=== PATIENT | female | born 1990 | race Caucasian/White ===

== ENCOUNTER 2017-08-20 03:22 | Inpatient (IN) | payer OTHER ==
[~2017-08-20] VITALS: Ht 170.2 cm; Wt 102.1 kg
[~2017-08-20 03:22] MED LIST: PRENTAB26 PO
[2017-08-23] MEDS ORDERED: LACTATED RINGER'S 1000ML 1,000 ML IV PRN (10:28)
[2017-08-23] MEDS ORDERED: LACTATED RINGER'S 1000ML 500 ML IV PRN ×2 (10:39→17:36)
[2017-08-23] MEDS ORDERED: OXYTOCIN 30 UNITS/500ML NSS IV PRN ×2 (10:45→22:15)
[2017-08-23] MEDS ORDERED: MISOPROSTOL 25 MCG TAB PV ONE (10:45)
[2017-08-23] MEDS: LACTATED RINGER'S 1000ML 1,000 ML IV SCH ×3 (11:08→20:21)
[2017-08-23 11:17] LABS: HEMATOCRIT 33.4 % (37-47); HEMOGLOBIN 11.3 g/dL (12.0-16.0); MEAN CORPUSCULAR HEMOGLOBIN 28.8 pg (25-34); MEAN CORPUSCULAR HGB CONC 33.8 g/dl (32-36); MEAN PLATELET VOLUME 11.7 fL (7.4-10.4); NUCLEATED RED BLOOD CELL ABS 0.02 K/uL (0-0); PLATELET COUNT 220 K/uL (130-400); RED CELL DISTRIBUTION WIDTH CV 14.4 % (11.5-14.5); RED CELL DISTRIBUTION WIDTH SD 44.5 fL (36.4-46.3); WHITE BLOOD COUNT 8.83 K/uL (4.8-10.8)
[2017-08-23 11:30] VITALS: Ht 170.2 cm; Wt 102.1 kg
[2017-08-23] MEDS ORDERED: PENICILLIN G POTASSIUM IV 6 MU in DEXTROSE 5% 250ML 250 ML IV STA (11:31)
[2017-08-23] MEDS ORDERED: BUPIVACAINE 0.25% 30 ML VIAL ONE (15:31)
[2017-08-23] MEDS ORDERED: EpHEDrine SULFATE INJ 50 MG/ML AMP ONE (15:31)
[2017-08-23] MEDS ORDERED: FENTANYL CITRATE INJ 50 MCG/1 ML 2 ML VIAL ONE (15:32)
[2017-08-23] MEDS ORDERED: FENTANYL 2MCG/ML ROPIV 1.25MG/ML 100ML BAG EPI ONE (15:33)
[2017-08-23] MEDS: PENICILLIN G POTASSIUM IV 3 MU in DEXTROSE 5% 100ML 100 ML IV PRN ×2 (15:48→19:35)
[2017-08-23] MEDS ORDERED: NALOXONE HCL INJ 1 MG in SODIUM CHLORIDE 0.9% 1000ML 1,000 ML IV PRN (17:36)
[2017-08-23] MEDS ORDERED: EpHEDrine SULFATE INJ 50 MG/ML AMP IV PRN (17:45)
[2017-08-23] MEDS ORDERED: NALOXONE HCL INJ 0.4 MG/1 ML VIAL/CARP IV PRN (17:45)
[2017-08-23] MEDS ORDERED: ONDANSETRON INJ 2 MG/ML 2 ML VIAL IV PRN (17:45)
[2017-08-23] MEDS ORDERED: DiphenhydrAMINE HCL 50 MG/ML VIAL IV PRN (17:45)
[2017-08-23] MEDS ORDERED: NALBUPHINE HCL INJ 10 MG/ML AMP IV PRN (17:45)
[2017-08-23] MEDS: FENTANYL 2MCG/ML ROPIV 1.25MG/ML 100ML BAG EPI PRN ×2 (18:00→19:04)
[2017-08-23] MEDS ORDERED: NURSING VERBAL MED ORDER ONE (18:15)
--- NOTE | 2017-08-23 22:12 | Anesthesia Procedure Note ---
Anesthesia Epidural Removal Nt Date & Time Aug 23, 2017 at 22:11 Vital Signs Pain Intensity: 0.0 Notes Mental Status: alert / awake / arousable, participated in evaluation Nausea / Vomiting: adequately controlled Pain: adequately controlled Airway Patency, RR, SpO2: stable & adequate BP & HR: stable & adequate Hydration State: stable & adequate Neuraxial Anesthesia: was administered, sensory block is resolving Anesthetic Complications: no major complications apparent, pt satisfied with anesthetic care Epidural: removed without complications, with tip intact
[2017-08-23] MEDS ORDERED: LANOLIN OINT EXT PRN (22:15)
[2017-08-23] MEDS ORDERED: SUPERCREAM 0.870 % 15GM JAR EXT PRN (22:15)
[2017-08-23] MEDS ORDERED: HYDROCORTISONE ACETATE 25 MG SUPP PR PRN (22:15)
[2017-08-23] MEDS ORDERED: ACETAMINOPHEN 325 MG TAB PO PRN (22:15)
[2017-08-24] VITALS (7 sets, daily range): BP systolic 110–133; BP diastolic 64–87; PULSE 80–102; TEMP 36.3–36.9; O2SAT 95–97
[2017-08-24] MEDS: IBUPROFEN 600 MG TAB PO PRN ×5 (00:07→18:50)
[2017-08-24] MEDS: BENZOCAINE 20% AER SPR 82.5 GM CAN EXT PRN (02:09)
[2017-08-24] MEDS: OXYCODONE/ACETAMINOPHEN 5-325 TAB PO PRN ×2 (02:09→23:47)
--- NOTE | 2017-08-24 02:13 | DELIVERY SUMMARY ---
DATE OF OPERATION: 08/23/2017 TIME OF DELIVERY: 2135. DELIVERY OF PLACENTA: 2138. DELIVERY NOTE: The patient is a 27-year-old 1 para 0 at 40 weeks gestation, who was admitted to labor and delivery on the morning of 08/23/2017 for a scheduled induction of labor secondary largely for gestational age. On admission, she was found to be 4 cm, 75% of -1 station. heart tones are category I. She was started on oxytocin per protocol for labor induction. She received an epidural for anesthesia. Artificial rupture of membranes was performed at 0 with clear amniotic fluid noted. She reached complete dilation at 2043 and pushed to delivery at 2135. She delivered a viable male in the occiput posterior position to an midline episiotomy. The baby was delivered without complication and placed on the patient's abdomen. Cord was clamped x2 and cut. Apgars were 8 at 1 minute and 9 at 5 minutes. Please see nursing notes for further baby assessment. Cord blood was then obtained and intact placenta with 3-vessel cord was delivered at 2138. Oxytocin infusion was then begun. The lower uterine segment and vagina were cleared of any blood clots and debris. Exploration of the perineum noted midline episiotomy with no extension, which was repaired with 2-0 and 3-0 Vicryl sutures in layers. Good sphincter tone was noted. No other lacerations were seen. Estimated blood loss was 300 mL. All sponge, instrument, and needle counts were found to be correct x2. Both patient and baby tolerated the delivery well and were in recovery with stable vital signs. I attest to the content of the Intraoperative Record and any orders documented therein. Any exceptions are noted below. MTDD
[2017-08-24 05:39] LABS: HEMATOCRIT 34.1 % (37-47); HEMOGLOBIN 11.3 g/dL (12.0-16.0)
[2017-08-24] MEDS: DOCUSATE SODIUM 100 MG CAP PO SCH ×2 (07:30→20:21)
[2017-08-24] MEDS: FERROUS SULFATE 325 MG TAB PO SCH (07:31)
[2017-08-24] MEDS: PRENATAL VITAMIN TAB PO SCH (07:31)
--- NOTE | 2017-08-24 08:12 | OB/GYN Progress Note ---
CRUMB PACKER Progress Note Date of Service: Aug 24, 2017. Patient is seen and examined. She feels well, no complaints. Ambulating without dizziness Voiding without difficulty Tolerating regular diet with out N&V Bleeding is minimal No fever/ chills/ CP/ SOB/ N&V/ Leg pain Breast feeding without problems Last 8 Hrs Date Time Temp Pulse Resp B/P (MAP) Pulse Ox O2 Delivery O2 Flow Rate FiO2 08/24/17 04:35 36.8 86 16 133/83 (100) 96 Room Air 08/24/17 01:05 Room Air 08/24/17 01:05 36.9 102 16 126/82 (97) 97 Room Air Last 24 Hours Test 08/23/17 10:45 08/24/17 05:25 White Blood Count 8.83 K/uL Red Blood Count 3.93 M/uL Hemoglobin 11.3 g/dL 11.3 g/dL Hematocrit 33.4 % 34.1 % Mean Corpuscular Volume 85.0 fL Mean Corpuscular Hemoglobin 28.8 pg Mean Corpuscular Hemoglobin Concent 33.8 g/dl RDW Standard Deviation 44.5 fL RDW Coefficient of Variation 14.4 % Platelet Count 220 K/uL Mean Platelet Volume 11.7 fL Nucleated RBC Absolute Count (auto) 0.02 K/uL Nucleated Red Blood Cells % 0.2 % PE: General: Alert, orientedx3, NAD Abd: soft, NT, fundus firm, below Umbilicus Perineum intact, Lochia rubra minimal Ext; NT, no edema AP: 27 yo s/p , ppd# 1 VSS Afebrile doing well Continue routine care All questions were answered D/C home tomorrow
[2017-08-24] MEDS ORDERED: DIPHTHERIA/TETANUS/PERTUSSIS 0.5 ML SYR/VIAL IM. ONE (09:00)
[2017-08-24] MEDS ORDERED: BISACODYL 5 MG TABEC PO SCH (20:00)
[2017-08-25] MEDS: BENZOCAINE 20% AER SPR 82.5 GM CAN EXT PRN (02:34)
[2017-08-25 06:55] LABS: HEMATOCRIT 30.8 % (37-47); HEMOGLOBIN 10.5 g/dL (12.0-16.0); MEAN CELL VOLUME 86.3 fL (80-100); MEAN CORPUSCULAR HEMOGLOBIN 29.4 pg (25-34); MEAN CORPUSCULAR HGB CONC 34.1 g/dl (32-36); MEAN PLATELET VOLUME 11.6 fL (7.4-10.4); PLATELET COUNT 180 K/uL (130-400); RED CELL DISTRIBUTION WIDTH CV 14.8 % (11.5-14.5); RED CELL DISTRIBUTION WIDTH SD 46.2 fL (36.4-46.3); WHITE BLOOD COUNT 10.43 K/uL (4.8-10.8)
[2017-08-25] MEDS ORDERED: BISACODYL 10 MG SUPP PR PRN (07:00)
[2017-08-25] MEDS: DOCUSATE SODIUM 100 MG CAP PO SCH (07:20)
[2017-08-25] MEDS: PRENATAL VITAMIN TAB PO SCH (07:20)
[2017-08-25] MEDS: IBUPROFEN 600 MG TAB PO PRN ×2 (07:20→11:24)
[2017-08-25] MEDS: FERROUS SULFATE 325 MG TAB PO SCH (07:20)
[2017-08-25 07:30] VITALS: BP 125/79; PULSE 91; TEMP 36.5; O2SAT 97
--- NOTE | 2017-08-25 09:42 | OB/GYN Progress Note ---
CORPORATE SPECIALIST Progress Note Date of Service: Aug 25, 2017. Patient is seen and examined. She feels well, no complaints. Ambulating without dizziness Voiding without difficulty Tolerating regular diet with out N&V Bleeding is minimal No fever/ chills/ CP/ SOB/ N&V/ Leg pain Breast feeding without problems Date Time Temp Pulse Resp B/P (MAP) Pulse Ox O2 Delivery O2 Flow Rate FiO2 08/25/17 07:30 36.5 91 20 125/79 (94) 97 Room Air 08/25/17 07:30 97 Room Air 08/24/17 23:45 36.8 85 16 110/64 (79) 08/24/17 23:45 Room Air 08/24/17 19:30 36.5 85 20 133/84 (100) Room Air 08/24/17 15:30 Room Air 08/24/17 15:30 36.5 80 20 122/76 (91) Room Air 08/24/17 12:15 36.3 83 20 125/87 (100) 97 Room Air Last 24 Hours Test 08/25/17 06:17 White Blood Count 10.43 K/uL Red Blood Count 3.57 M/uL Hemoglobin 10.5 g/dL Hematocrit 30.8 % Mean Corpuscular Volume 86.3 fL Mean Corpuscular Hemoglobin 29.4 pg Mean Corpuscular Hemoglobin Concent 34.1 g/dl RDW Standard Deviation 46.2 fL RDW Coefficient of Variation 14.8 % Platelet Count 180 K/uL Mean Platelet Volume 11.6 fL PE: General: Alert, orientedx3, NAD Abd: soft, NT, fundus firm, below Umbilicus Perineum intact, Lochia rubra minimal Ext; NT, no edema AP: 27 yo s/p , ppd# 2 VSS Afebrile doing well Continue routine care All questions were answered Encouraged to call with questions or concerns D/C home , f/u in office
--- NOTE | 2017-08-25 09:43 | Discharge Instructions ---
Discharge Instructions Date of Service Aug 25, 2017. Admission Reason for Admission: IUP Discharge Discharge Diagnosis / Problem: Discharge Goals Goal(s): Routine recovery after delivery Medications Continue Dispensed Medications: lansinoh, other Activity Recommendations Activity Limitations: as noted below ACTIVITY RECOMMENDATIONS: * Gradual return to full activity over the next 2-3 weeks. * No lifting - nothing heavier than baby over the next 2-3 weeks. * Do not engage in vigorous exercise, sexual activity or sports until cleared by your physician. * Do not drive or operate any motorized equipment until cleared by your physician. * You may shower/bathe daily. BREAST CARE: If you are not breast feeding: * Wear a supportive bra 24 hours a day for one to two weeks. * Avoid stimulating your breasts and nipples as much as possible during the first few weeks after delivery. * When taking a shower, have the warm water hit your back, not breasts. * When your breasts feel full, apply ice packs. Usually three to four times a day helps ease the discomfort. * Take a mild pain medication (Tylenol/Motrin) when you are uncomfortable. If breast feeding: * Use breast milk to lubricate nipples. Lansinoh cream may be used for sore nipples. You do not need to remove cream prior to breast feeding. If using a different brand of cream, check the label for directions regarding removal of cream prior to nursing. * Wear a supportive bra. * If having problems with breasts or breast feeding, call a technical marketing consultant or your health care provider. EPISIOTOMY CARE: After delivery, if you have an episiotomy (stitches), the following steps will ease discomfort and aid healing. * For the first 24 hours after delivery, place ice packs next to your episiotomy to help reduce swelling. * After the first 24 hour-period, sitz baths, either portable or in the tub, are suggested. A shower with a shower arm sprayed over the episiotomy may be comforting. * Kailey care should be done after each voiding and bowel movement. Squirt warm water from a plastic bottle over the perineum (region of the body between the anus and urinary opening) and pat dry. * Use Dermoplast to ease discomfort. Shake container. Wing directly over the episiotomy. * Place a Tucks on a clean sanitary pad next to your episiotomy. OVER THE COUNTER MEDICATION: * For discomfort or pain, you may use Acetaminophen (Tylenol), Ibuprofen (Advil ), or Naproxen (Aleve) following the package directions. * For constipation you may use Colace following the package directions. SPECIAL CARE INSTRUCTIONS: When you are discharged from the hospital, it is important for you to follow the instructions listed below: * During the first week at home, you should be able to care for yourself and your baby. In addition, the usual light household activities are encouraged. * Limit your activities to the way you feel. Do not try to clean the house or move furniture. Be sensible. * If you actively engage in sports and have done so up until the time of your delivery, you may resume these activities as soon as you feel able. This may take up to one month or even longer. Use good judgment. * Continue to take your vitamins for at least six weeks after the of your baby. * Your diet need not be limited unless you were on a special diet before your delivery. Breast-feeding mothers need around 2500 calories per day and at least 64-80 ounces of fluid per day (8 to 10 glasses). * You should eat foods from the four major food groups. Crash diets or fad diets are to be avoided. Eating lean meats, fresh fruits and vegetables, low-fat dairy products, high fiber foods and a regular exercise program, will help you get back to your pre- weight without putting your health at risk. * Constipation is sometimes a problem after delivery. Take a mild laxative as needed. If breast feeding, Milk of Magnesia is acceptable to use. You may use a suppository or Fleets enema if no episiotomy. * A daily shower or tub bath is suggested. Be sure to thoroughly and gently dry the perineum. * A bloody vaginal discharge will usually continue until around four weeks post . A small amount of bleeding may continue for as long as six weeks. Vaginal discharge changes from the bright red bleeding after delivery to pink then brownish and finally yellowish-pink before becoming white and disappearing. * Bleeding may increase with activity. Your first period may come in 4-8 weeks. If you are breast feeding, your period may be delayed even longer. * [place] (sex) can begin whenever both you and your partner feel comfortable and do not have any form of genital infection. It is recommended that you wait until after your return appointment and discuss with your physician. If you have questions, please talk to your health care practitioner. A condom should be used to prevent infection and . * Foreplay, gentle intercourse and lubrication is very important the first several times to prevent pain. A water-based lubricant such as K-Y jelly or Astroglide may be used. * Tampons may be used six weeks after delivery. * Douching should be avoided for 6 weeks after delivery. * If you have RH negative blood and your baby is RH positive, you will receive RHOGAM by injection prior to discharge. The nurse will give you a card to keep with you that has the date and place that you received RHOGAM after delivery. * During your care, you had a Rubella screen done to check for the presence of rubella antibodies in your blood. If your test was negative, you will receive a Rubella vaccine prior to discharge. This vaccine may cause a fever, soreness at the injection site and flu-like symptoms. If these symptoms persist, notify your health care practitioner. is not advised for three months after a Rubella vaccine. There is a higher chance of having a baby with defects if conceived within three months of getting the vaccine. * If you were discharged 24 hours from delivery or before 48 hours: Visiting nurses will come to your home 48 hours after discharge to assess you and your baby. The visiting nurse will meet with you while you are in the hospital to arrange a time and get directions to your home. * Verbalizes understanding of car seat law as reviewed with patient nursing. * Car Seat hand-out given and reviewed with patient by nursing. * Shaken baby information reviewed with patient by nursing. Call you doctor if: * Heavy bleeding (saturating several pads an hour) or passing clots the size of your fist. * A fever >101 degrees F (38.3 degrees C) on two occasions four hours apart and/or chills. * Unusual pain in the pelvic or vaginal areas. * "Baby Blues" lasting longer than two weeks. If you have any questions or concerns, call your health care practitioner at . FOLLOW-UP VISIT: * Please call the office at to schedule a 6 week examination. It is important you keep this appointment. * It is important for you to make arrangements for either yearly or twice yearly check-ups thereafter. . Current Hospital Diet Patient's current hospital diet: Regular OB Diet Discharge Diet Recommended Diet: Regular Diet Pending Studies Studies pending at discharge: no Medical Emergencies . Who to Call and When: Medical Emergencies: If at any time you feel your situation is an emergency, please call 911 immediately. . Non-Emergent Contact Non-Emergency issues call your: Specialist Call Non-Emergent contact if: temperature is above 100.5, your pain is not controlled, your pain is worsening . . "Provider Documentation" section prepared by Surinder Stephens. .
[2017-08-25] MEDS ORDERED: MAGNESIUM HYDROXIDE SUSP 30 ML UDC PO ONE (11:30)
[2017-08-25 15:30] VITALS: BP 135/87; PULSE 67; TEMP 36.7
[2017-08-25 17:25] VITALS: BP_DIAS 87; PULSE 67; TEMP 36.7
== END 2017-08-25 18:35 | disposition home or self-care (01) | DRG 775 ==
LOC: C.LD 08-23 10:05 → C.OBG 08-24 01:17
PROVIDERS: ADMIT Obstetrics & Gynecology; ATTEND Obstetrics & Gynecology
PROC: 3E033VJ Introduction of Other Hormone into Peripheral Vein, Percutaneous Approach (ICD-10-PCS; principal; 2017-08-23)
PROC: 0W8NXZZ Division of Female Perineum, External Approach (ICD-10-PCS; principal; 2017-08-23)
PROC: 10E0XZZ Delivery of Products of Conception, External Approach (ICD-10-PCS; principal; 2017-08-23)
DX: O36.62X0 Maternal care for excessive fetal growth, second trimester, not applicable or unspecified (principal); Z3A.40 40 weeks gestation of pregnancy; Z37.0 Single live birth

== ENCOUNTER 2020-04-05 07:42 | Inpatient (IN) ==
[2020-04-05] MEDS ORDERED: OXYTOCIN 30 UNITS/500 ML BAG IV PRN ×3 (07:44→19:24)
[2020-04-05] MEDS ORDERED: PENICILLIN G POTASSIUM 6 MU in DEXTROSE 5% 250 ML IV STA (07:44)
--- NOTE | 2020-04-05 07:51 | Obstetrical Progress Note ---
Date of Service April 05, 2020 Assessment & Plan Admission and Anticipated Discharge Date Admission Date: April 05, 2020 Subjective Admit Note 29 F P1001 at 38.5 weeks admitted for induction of labor for macrosomia at term. patient has previous delivery uncomplicated in July of 2017 9lb 15 oz. This baby measures EFW of 10 lbs. 4 oz yesterday by ultrasound. GBS is positive. Cervix is 3.5/70/-2/vertex/mid-position/soft/intact. FHT Cat 1. Will start antibiotics and start Pitocin to induce labor. Anticipate vaginal delivery.
[2020-04-05 08:21] LABS: Hematocrit (blood only) 34.9 % (37-47); Hemoglobin 11.4 g/dL (12.0-16.0); Mean Corpuscular Hemoglobin 27.8 pg (25-34); Mean Corpuscular Hgb Conc 32.7 g/dL (32-36); Mean Corpuscular Volume 85.1 fL (80-100); Mean Platelet Volume 12.4 fL (7.4-10.4); Platelet Count 200 K/uL (130-400); RDW Coefficient of Variation 15.1 % (11.5-14.5); RDW Standard Deviation 46.7 fL (36.4-46.3); White Blood Count 9.77 K/uL (4.8-10.8)
[2020-04-05] MEDS: LACTATED RINGER'S 1,000 ML IV PRN ×3 (08:35→17:03)
[2020-04-05] MEDS ORDERED: ONDANSETRON INJ 2 MG/ML 2 ML VIAL IV PRN (11:45)
[2020-04-05] MEDS ORDERED: NALOXONE HCL 1 MG in SODIUM CHLORIDE 0.9% 1000ML 1,000 ML IV PRN (11:45)
[2020-04-05] MEDS ORDERED: diphenhydrAMINE 50 MG/ML VIAL IV PRN (11:45)
[2020-04-05] MEDS ORDERED: fentaNYL 2MCG/ML ROPIVACAINE 1.25MG/ML 100 ML BAG EPI PRN (11:45)
[2020-04-05] MEDS ORDERED: ePHEDrine sulfate 50 MG/ML AMP IV PRN (11:45)
[2020-04-05] MEDS ORDERED: NALOXONE HCL 0.4 MG/1 ML VIAL/CARP IV PRN (11:45)
[2020-04-05] MEDS ORDERED: BUPIVACAINE 0.25% 30 ML VIAL ONE (11:53)
[2020-04-05] MEDS ORDERED: fentaNYL citrate 100 MCG/2 ML VIAL ONE (11:53)
[2020-04-05] MEDS ORDERED: ePHEDrine sulfate 50 MG/ML AMP ONE (11:53)
[2020-04-05] MEDS ORDERED: SODIUM CHLORIDE 0.9% INJ 10 ML VIAL ONE (11:53)
[2020-04-05] MEDS ORDERED: fentaNYL 2MCG/ML ROPIVACAINE 1.25MG/ML 100 ML BAG EPI ONE (11:54)
--- NOTE | 2020-04-05 12:08 | Anesthesiology Consultation ---
Date of Service April 05, 2020 Assessment & Plan Chart Review Chart Review: Acceptable Risk for Labor Epidural Consults Requested none ASA ASA2 Proposed Anesthesia Anesthesia Type: Labor Epidural Risk / Benefits Reviewed With: PT / POA / Parent / Guardian, Accepts Plan and Informed Consent Obtained History Height/Weight Height: 5 ft 7 in Weight: 108.409 kg Allergies Allergy/AdvReac Type Severity Reaction Status Date / Time No Known Allergies Allergy NONE Unverified 08/23/17 11:29 Medications Home Medications Medication Instructions Recorded Confirmed Last Taken Multivit/Min/Iron/Fol Ac/Pren 1 tab PO DAILY #0 tab 08/15/17 04/05/20 04/04/20 ( Vitamin) levothyroxine [Synthroid] 125 mcg PO DAILY 04/05/20 04/05/20 04/05/20 06:00 Active Medications Generic Name Dose Route Start Last Admin Trade Name Freq PRN Reason Stop Dose Admin Lactated Ringer's 1,000 mls @ 125 mls/hr 04/05/20 07:44 04/05/20 10:35 Lr IV 04/07/20 07:43 999 mls/hr .Q8H PRN Infusion L&D Protocol Protocol Oxytocin 30 units in 500 mls @ 4 mls/hr 04/05/20 07:46 04/05/20 11:50 Pitocin IV 04/07/20 07:45 0.24 units/hr .Q24H PRN 4 mls/hr Labor Induction/Augmentation Titration Protocol 0.24 UNITS/HR Past Medical History Medical History macrosomia in Hypothyroidism Exercise / Class Metabolic Activity II 4-5 Yardwork/Stairs/Walk up hill Past Family History Family History Other Diabetes mellitus type 1 Hypertension Past Surgical History Surgical History History of adenoidectomy Past Anesthesia History No Hx of Anesthesia Complications and No Family Hx of Anesthesia Complications History of PONV No Hx of PONV and No Hx of Motion Sickness Social History Smoking Status: Never smoker Do You Dip or Chew Tobacco: No Hx Alcohol Use: No Hx Substance Use: No Physical Exam Vital Signs Last Vital Signs Temp 98.1 F 04/05/20 08:43 Pulse 67 04/05/20 12:02 Resp 18 04/05/20 11:00 BP 138/88 04/05/20 10:41 Pulse Ox 97 04/05/20 12:02 ENMT Mouth: no dentition abnormality Thyromental Distance: > or= 3.5 Finger Breadths Mallampati Class: II Neck normal visual inspection Respiratory normal respiratory effort Auscultation: lungs clear to auscultation bilaterally Cardiovascular Rate/Rhythm: regular rate and regular rhythm Testing Laboratory Results 04/05/20 07:58
--- NOTE | 2020-04-05 12:09 | Obstetrical Progress Note ---
Date of Service April 05, 2020 Assessment & Plan Admission and Anticipated Discharge Date Admission Date: April 05, 2020 Physical Exam Genitourinary: Manual OB Exam: + cervical dilation 4 cm, + cervical effacement 80% and + station -1 OB Exam Monitor Tracing: + external FHT monitor used, + category I and + normal FHT variability patient requesting epidural Results & Data ([facility]) Vital Signs (Past 12 Hours) Vital Signs Temp Pulse Resp BP Pulse Ox 04/05/20 12:02 67 97 04/05/20 11:57 74 97 04/05/20 11:52 75 97 04/05/20 11:00 18 04/05/20 10:41 75 138/88 04/05/20 10:38 18 04/05/20 09:05 18 04/05/20 09:00 18 04/05/20 08:43 36.7 C 78 18 136/71 04/05/20 08:41 78 136/71 04/05/20 08:30 18 04/05/20 08:07 86 131/87 04/05/20 08:00 36.7 C 78 18 136/71 04/05/20 07:43 36.7 C 18
[2020-04-05] MEDS: PENICILLIN G POTASSIUM 3 MU in DEXTROSE 5% 100 ML IV PRN ×2 (13:02→16:27)
--- NOTE | 2020-04-05 17:43 | Delivery Summary ---
Vaginal Delivery Summary Date of Service April 05, 2020 Vaginal Delivery Summary Delivery note live male over intact perineum JOSSELYN with delayed cord clamping. Apgars 7/9 weight pending. Cord blood obtained followed by spontaneous delivery of intact placenta. First degree tear repaired with 3/0 Vicryl suture. Final sponge, needle and instrument count are correct. EBL 200 ml. Mom and baby stable.
--- NOTE | 2020-04-05 18:16 | Anesthesia Procedure Note ---
Date of Service April 05, 2020 Anesthesia Post Epidural Note Vital Signs Vital Signs: Temp Pulse Resp BP Pulse Ox 97.7 F 80 18 132/75 94 04/05/20 16:00 04/05/20 18:04 04/05/20 16:00 04/05/20 18:04 04/05/20 15:05 Pain Intensity Right Lower Perineal: Pain Intensity: 8 Notes Mental Status: alert / awake / arousable and participated in evaluation Nausea / Vomiting: adequately controlled Pain: adequately controlled Airway Patency, RR, SpO2: stable & adequate BP & HR: stable & adequate Hydration State: stable & adequate Neuraxial Anesthesia: was administered and sensory block is resolving Anesthetic Complications: no major complications apparent and Pt Satisfied with anesthetic care Epidural: Removed without complications and With tip intact
[2020-04-05] MEDS ORDERED: ACETAMINOPHEN 325 MG TAB PO PRN (19:24)
[2020-04-05] MEDS ORDERED: DIPHTHERIA/TETANUS/PERTUSSIS 0.5 ML SYR/VIAL IM ONE (19:24)
[2020-04-05] MEDS ORDERED: bisacodyL 10 MG SUPP PR PRN (19:24)
[2020-04-05] MEDS ORDERED: BENZOCAINE 20% AER SPR 82.5 GM CAN EXT PRN (19:24)
[2020-04-05] MEDS ORDERED: HYDROCORTISONE ACETATE 25 MG SUPP PR PRN (19:24)
[2020-04-05] MEDS ORDERED: SUPERCREAM 0.870% 15 GM JAR EXT PRN (19:24)
[2020-04-05] MEDS: IBUPROFEN 600 MG TAB PO PRN (21:06)
[2020-04-05] MEDS: DOCUSATE SODIUM 100 MG CAP PO SCH (21:06)
[2020-04-06] MEDS: IBUPROFEN 600 MG TAB PO PRN ×5 (01:26→20:41)
[2020-04-06] MEDS: LEVOTHYROXINE SODIUM 125 MCG TABLET PO SCH (05:05)
[2020-04-06 07:14] LABS: Hematocrit (blood only) 32.1 % (37-47); Hemoglobin 10.4 g/dL (12.0-16.0); Mean Corpuscular Hemoglobin 27.8 pg (25-34); Mean Corpuscular Hgb Conc 32.4 g/dL (32-36); Mean Corpuscular Volume 85.8 fL (80-100); Mean Platelet Volume 12.4 fL (7.4-10.4); Platelet Count 177 K/uL (130-400); RDW Coefficient of Variation 15.2 % (11.5-14.5); RDW Standard Deviation 47.5 fL (36.4-46.3); Red Blood Count 3.74 M/uL (4.2-5.4); White Blood Count 11.78 K/uL (4.8-10.8)
--- NOTE | 2020-04-06 07:51 | Obstetrical Progress Note ---
Date of Service April 06, 2020 Assessment & Plan Admission and Anticipated Discharge Date Admission Date: April 05, 2020 Physical Exam Physical Exam: abdomen soft and non tender no calf tenderness ambulating well vaginal bleeding scant hgb 10.4 Results & Data ([facility]) Vital Signs (Past 12 Hours) Vital Signs Temp Pulse Resp BP Pulse Ox 04/06/20 03:40 36.6 C 77 16 120/70 97 04/06/20 00:10 36.7 C 76 16 129/78 96 04/05/20 19:59 36.9 C 89 16 132/75 96
[2020-04-06] MEDS: PRENATAL VITAMIN 1 TAB PO SCH (08:57)
[2020-04-06] MEDS: DOCUSATE SODIUM 100 MG CAP PO SCH ×2 (08:57→20:41)
[2020-04-06] MEDS ORDERED: NON-FORMULARY MEDICATION (Multivit/Min/Iron/Fol Ac/Pren (Prenatal Vitamin) tablet) PO SCH (09:00)
[2020-04-06] MEDS ORDERED: bisacodyL 5 MG TABEC PO SCH (20:00)
[2020-04-07] MEDS: LEVOTHYROXINE SODIUM 125 MCG TABLET PO SCH (06:40)
[2020-04-07 07:03] LABS: Hematocrit (blood only) 32.7 % (37-47); Hemoglobin 10.6 g/dL (12.0-16.0)
--- NOTE | 2020-04-07 08:04 | Obstetrical Progress Note ---
Date of Service April 07, 2020 Assessment & Plan Admission and Anticipated Discharge Date Admission Date: April 05, 2020 Subjective Patient is seen and examined. She feels well, no complaints. Ambulating without dizziness Voiding without difficulty Tolerating regular diet with out N&V Bleeding is minimal No fever/ chills/ CP/ SOB/ N&V/ Leg pain Breast feeding without problems Vital Signs Temp Pulse Resp BP Pulse Ox 04/07/20 00:10 36.5 C 76 18 125/80 98 04/06/20 15:30 36.8 C 84 16 121/78 97 04/06/20 12:45 36.7 C 73 20 98 Lab Results 04/05/20 04/06/20 04/07/20 Range/Units 07:58 06:12 06:39 WBC 9.77 11.78 H (4.8-10.8) K/uL RBC 4.10 L 3.74 L (4.2-5.4) M/uL Hgb 11.4 L 10.4 L 10.6 L (12.0-16.0) g/dL Hct 34.9 L 32.1 L 32.7 L (37-47) % MCV 85.1 85.8 (80-100) fL MCH 27.8 27.8 (25-34) pg MCHC 32.7 32.4 (32-36) g/dL RDW Std Deviation 46.7 H 47.5 H (36.4-46.3) fL RDW Coeff of Brii 15.1 H 15.2 H (11.5-14.5) % Plt Count 200 177 (130-400) K/uL MPV 12.4 H 12.4 H (7.4-10.4) fL PE: General: Alert, orientedx3, NAD Abd: soft, NT, fundus firm, below Umbilicus Perineum intact, Lochia rubra minimal Ext; NT, no edema AP: 29 yo s/p , ppd# 2 VSS Afebrile doing well Continue routine care All questions were answered Discussed when to call D/C home , f/u in offfice Results & Data ([facility]) Vital Signs (Past 12 Hours) Vital Signs Temp Pulse Resp BP Pulse Ox 04/07/20 00:10 36.5 C 76 18 125/80 98
[2020-04-07] MEDS: PRENATAL VITAMIN 1 TAB PO SCH (08:48)
[2020-04-07] MEDS: DOCUSATE SODIUM 100 MG CAP PO SCH (08:48)
== END 2020-04-07 11:55 | disposition home or self-care (01) | DRG 807 ==
LOC: 4S1 07:42 → 4S2 19:59

== ENCOUNTER 2024-05-20 07:43 | Inpatient (IN) ==
[2024-05-20] MEDS ORDERED: LIDOCAINE 1% LOCAL 20 ML VIAL INFIL PRN (08:21)
[2024-05-20] MEDS: PENICILLIN GK 6 MU in SODIUM CHLORIDE 0.9% 250 ML IV STA (08:55)
[2024-05-20 09:23] LABS: Alanine Aminotransferase 7 U/L (7-52); Aspartate Aminotransferase 13 U/L (13-39)
[2024-05-20 09:25] LABS: Hematocrit (blood only) 31.3 % (37.0-47.0); Hemoglobin 10.3 g/dl (12.0-16.0); Mean Corpuscular Hemoglobin 27.4 pg (25.0-34.0); Mean Corpuscular Hgb Conc 32.9 g/dL (32.0-36.0); Mean Corpuscular Volume 83.2 fL (80.0-100.0); Mean Platelet Volume 12.2 fL (9.4-12.4); Platelet Count 212 K/uL (130-400); RDW Coefficient of Variation 15.2 % (11.5-14.5); RDW Standard Deviation 45.1 fL (36.4-46.3); Red Blood Count 3.76 M/uL (4.20-5.40); White Blood Count 7.71 K/ul (4.8-10.8)
[2024-05-20] MEDS ORDERED: SODIUM CHLORIDE 0.9% 100 ML IV PRN (09:32)
[2024-05-20] MEDS ORDERED: SODIUM CHLORIDE 0.9% 50 ML IV PRN (09:32)
[2024-05-20] MEDS: SODIUM CHLORIDE 0.9% 1,000 ML IV SCH (10:22)
[2024-05-20] MEDS: OXYTOCIN 30 UNITS/NSS 30 UNITS/500 ML BAG IV PRN ×2 (10:22→16:19)
--- NOTE | 2024-05-20 12:05 | History & Physical Report ---
Date of Service May 20, 2024 Assessment & Plan (1) Polyhydramnios affecting : Plan: Jenna is a 33-year-old G3, P2 currently at 39 weeks 0 days gestational age presents for induction of labor secondary to mild polyhydramnios as detailed per HPI. 1. Fetus: Category 1 tracing 2. Labor: Will start with oxytocin per regular protocol and will AROM when completed on penicillin 3. GBS positive and penicillin per protocol 4. Vitals: Mild range blood pressure on admission. Added preeclampsia labs. Denying preeclampsia symptoms. 5. 10 cm left ovarian cyst. Cyst simple appearing likely cystadenoma versus paratubal cyst. Discussed potential for cystectomy versus oophorectomy if C- section necessary. Patient would like to have the cyst removed if a is performed. (2) Carrier of group B Streptococcus: (3) Ovarian cyst affecting in second trimester, antepartum: (4) Obesity affecting : (5) Hypothyroidism affecting : Admission and Anticipated Discharge Date Admission Date: May 20, 2024 History of Present Illness Primary Care Provider: Lorna Mcconnell MD Jenna is a 33-year-old G3, P2 currently at 39 weeks 0 days gestational age presents for induction of labor secondary to mild polyhydramnios. Recent DVP noted at 11 cm. Has a history of 2 prior vaginal deliveries without complication. Hypothyroid *Check TFTs Q4wks Rubella Equivocal BMI 35-39 Beginning of *Growth US 32wks *NSTs at 36wks weekly 10cm left ovarian simple cystic mass seen at ultrasound--incidental finding *repeat evaluation at 24 weeks.----818ccs (11.9cm) *rpt in 4wks (1004ccs) *04/14 cyst now 484 ccs *04/24 cyst now 727ccs- (11.7x 11.0x 10.8cm) [place] [facility] [place] [facility] [place] GBS + (in urine) * Treat in labor Polyhydramnios *Weekly NSTs if fluid 12 or greater *Weekly AFIs @ Dx *If pocket >16 refer to M *Deliver between [id number] - 05/20/24 Allergies Allergy/AdvReac Type Severity Reaction Status Date / Time No Known Allergies Allergy NONE Unverified 05/19/24 10:17 Home Medications Medication Instructions Recorded Confirmed Type levothyroxine 112 mcg tablet 112 mcg PO DAILY #100 tabs 09/19/23 05/20/24 Rx magnesium 250 mg tablet 250 mg PO DAILY 05/18/24 05/20/24 History vits no.124-ferrous fum 1 tab PO DAILY 05/20/24 05/20/24 History 27 mg iron-folic acid 800 mcg tablet ( Vitamin) Patient History Medical History (Updated 05/20/24 @ 12:03 by Dann Stinson MD) Ovarian cyst, left Varicella vaccination Anxiety and depression Heavy menstrual bleeding Acute adjustment disorder with depressed mood Hemorrhoid Hypothyroidism Alopecia areata macrosomia in Term Medication reaction Surgical History [place] teeth removed History of adenoidectomy Family History Father Diabetes mellitus type 1 Hypertension Denies family history of Ovarian cancer Prostate cancer Myocardial infarction Breast cancer Colorectal cancer Social History Smoking Status: Never smoker Second Hand Exposure: No; Do You Dip or Chew Tobacco: No; Hx Alcohol Use: Yes Alcohol type: wine Alcohol Intake Frequency Comment: Very Very Rare Hx Substance Use: No Preferred Language: Danish Communication Ability: Effective Visual Impairment: No Limitations Hearing Ability: Normal Press Feeder Broomcorn Required: No Beliefs That Will Affect Care: None marital status: marital status details: Cristofer Guerin ([phone] Current Living Situation: Family Current Living Situation Comment: Lives at home with , 2 sons, 2 dogs, and 6 chickens. current occupational status: employed current occupation: [employer] How many Children do You have: 2 Other Information That Helps Us Care for You: No Feels Safe at Home: Yes Safety Concerns: Feels Safe At This Time Childhood Exposure to Second-Hand Smoke: No Dental Care, Regularly: Yes Physical Activity Frequency: Daily Seatbelt Use: always Sunscreen Use: Yes Assistive Devices: Glasses Physical Exam Genitourinary: OB Exam Abdomen: + vertex Manual OB Exam: + cervical dilation 4 cm, + cervical effacement 70% and + station -2 OB Exam Monitor Tracing: + external FHT monitor used, + external uterine monitor used, + category I and + normal FHT variability Results & Data Vital Signs (Past 12 Hours) Vital Signs Pulse BP 05/20/24 08:11 85 141/83 H 05/20/24 08:07 85 138/85 Coding Level of Care Code None Diagnoses Polyhydramnios affecting O40.9XX0 Carrier of group B Streptococcus Z22.330 Ovarian cyst affecting in second trimester, antepartum O34.82; N83.209 Obesity affecting in third trimester, unspecified obesity type O99.213 Trimester: third trimester Obesity type affecting : unspecified obesity Hypothyroidism affecting in third trimester O99.283; E03.9 Trimester: third trimester (4) Obesity affecting Trimester: third trimester Obesity type affecting : unspecified obesity Qualified Code(s): O99.213 - Obesity complicating , third trimester (5) Hypothyroidism affecting Trimester: third trimester Qualified Code(s): O99.283 - Endocrine, nutritional and metabolic diseases complicating , third trimester; E03.9 - Hypothyroidism, unspecified
--- NOTE | 2024-05-20 12:17 | Anesthesiology Consultation ---
Date of Service May 20, 2024 Assessment & Plan (1) Encounter for pre-operative examination: Chart Review Chart Review: Acceptable Risk for Labor Epidural History Height/Weight Height: 5 ft 7 in Weight: 113.398 kg Allergies Allergy/AdvReac Type Severity Reaction Status Date / Time No Known Allergies Allergy NONE Unverified 05/19/24 10:17 Medications Home Medications Medication Instructions Recorded Confirmed Last Taken levothyroxine 112 mcg tablet 112 mcg PO DAILY #100 tabs 09/19/23 05/20/24 05/20/24 06:30 magnesium 250 mg tablet 250 mg PO DAILY 05/18/24 05/20/24 05/19/24 vits no.124-ferrous fum 1 tab PO DAILY 05/20/24 05/20/24 05/20/24 06:30 27 mg iron-folic acid 800 mcg tablet ( Vitamin) Active Medications Generic Name Dose Route Start Last Admin Trade Name Freq PRN Reason Stop Dose Admin Oxytocin 30 units in 500 mls @ 5 mls/hr 05/20/24 08:22 05/20/24 11:25 Pitocin 30 Units/Nss IV 05/22/24 08:21 0.3 units/hr .Q24H PRN 5 mls/hr Labor Induction/Augmentation Titration Protocol 0.3 UNITS/HR Past Medical History Medical History (Updated 05/20/24 @ 12:16 by Taz Higgins MD) High blood pressure affecting , antepartum Carrier of group B Streptococcus Ovarian cyst, left Varicella vaccination Anxiety and depression Heavy menstrual bleeding Acute adjustment disorder with depressed mood Hemorrhoid Hypothyroidism Alopecia areata macrosomia in Past Family History Family History Father Diabetes mellitus type 1 Hypertension Denies family history of Ovarian cancer Prostate cancer Myocardial infarction Breast cancer Colorectal cancer Past Surgical History Surgical History [place] teeth removed History of adenoidectomy Social History Smoking Status: Never smoker Do You Dip or Chew Tobacco: No Hx Alcohol Use: Yes Alcohol type: wine Hx Substance Use: No Physical Exam Vital Signs Last Vital Signs Temp 36.7 C 05/20/24 11:00 Pulse 81 05/20/24 11:42 Resp 18 05/20/24 11:00 BP 148/71 H 05/20/24 11:42 Testing Laboratory Results 05/20/24 08:51 05/20/24 08:51 Blood Type A Positive 05/20/24 08:51 Antibody Screen NEGATIVE 05/20/24 08:51
[2024-05-20] MEDS: PENICILLIN GK 3 MU in DEXTROSE 5% 100 ML IV PRN (12:34)
[2024-05-20] MEDS ORDERED: NALOXONE HCL 1 MG in SODIUM CHLORIDE 0.9% 1,000 ML IV PRN (13:07)
[2024-05-20] MEDS ORDERED: fentaNYL citrate PF 100 MCG/2 ML VIAL EPI PRN (13:07)
[2024-05-20] MEDS ORDERED: BUPIVACAINE 0.25% PF 30 ML VIAL EPI PRN (13:07)
[2024-05-20] MEDS ORDERED: SODIUM CHLORIDE 0.9% PF INJ 10 ML VIAL EPI PRN (13:07)
[2024-05-20] MEDS ORDERED: fentANYL 2 MCG/ML BUPIVacaine 0.125%-NSS 100ML BAG EPI PRN (13:07)
[2024-05-20] MEDS ORDERED: ONDANSETRON INJ 2 MG/ML 2 ML VIAL IV PRN (13:07)
[2024-05-20] MEDS ORDERED: ROPIVACAINE 0.5% PF 5 MG/ML 20 ML VIAL EPI PRN (13:07)
[2024-05-20] MEDS ORDERED: NALOXONE HCL 0.4 MG/1 ML VIAL/CARP IV PRN (13:07)
[2024-05-20] MEDS ORDERED: ePHEDrine sulfate 50 MG/ML AMP IV PRN (13:07)
[2024-05-20] MEDS ORDERED: LIDOCAINE 2% MPF LOCAL 5 ML VIAL EPI PRN (13:07)
[2024-05-20] MEDS: fentANYL 2 MCG/ML BUPIVacaine 0.125%-NSS 100ML BAG ONE (13:12)
[2024-05-20] MEDS: fentaNYL citrate PF 100 MCG/2 ML VIAL ONE (13:13)
[2024-05-20] MEDS: LIDOCAINE 2%/EPINEPHRINE 1:200,000 20 ML PF ONE (13:13)
[2024-05-20] MEDS: BUPIVACAINE 0.25% PF 30 ML VIAL ONE (13:14)
[2024-05-20] MEDS: fentaNYL citrate PF 100 MCG/2 ML VIAL EPI STA (14:55)
[2024-05-20] MEDS: SODIUM CHLORIDE 0.9% PF INJ 10 ML VIAL ONE (14:55)
[2024-05-20] MEDS: BUPIVACAINE 0.25% PF 30 ML VIAL EPI STA (14:55)
[2024-05-20] MEDS: ePHEDrine sulfate 50 MG/ML AMP ONE (14:55)
[2024-05-20] MEDS: SODIUM CHLORIDE 0.9% PF INJ 10 ML VIAL EPI STA (14:56)
[2024-05-20] MEDS: LIDOCAINE 2%/EPINEPHRINE 1:200,000 20 ML PF EPI STA (14:56)
--- NOTE | 2024-05-20 15:42 | Delivery Summary ---
Vaginal Delivery Summary Date of Service May 20, 2024 Vaginal Delivery Summary and 2nd Degree LAC Patient progressed to 10 cm dilated, 100% effaced and +2 station pushed over intact perineum with epidural anesthesia and delivered a viable female with weight and Apgars pending. Head of the delivered without difficulty quickly followed by shoulders and body. was noted to be vigorous on delivery and a 1 minute delayed cord clamping was initiated. Cord was then double clamped and cut remained on maternal abdomen for several more minutes but was then taken to the warmer for evaluation. Attention was turned to delivery of the placenta which delivered intact with three-vessel cord with gentle cord traction. Inspection of perineum vagina and cervix there is noted to be a second-degree perineal laceration which was repaired with 3-0 Vicryl in the traditional crown stitch. Needle sponge and instrument counts are correct at the completion of the case both mother and stable in the immediate post delivery timeframe. No complications noted and blood loss per QBL in chart. [facility] Vaginal Delivery Charge Delivery Type Details: and 2nd Degree LAC
[2024-05-20] MEDS ORDERED: bisacodyL 10 MG SUPP PR PRN (15:44)
[2024-05-20] MEDS ORDERED: ACETAMINOPHEN 325 MG TAB PO PRN (15:44)
[2024-05-20] MEDS ORDERED: HYDROCORTISONE ACETATE 25 MG SUPP PR PRN (15:44)
[2024-05-20] MEDS ORDERED: OXYTOCIN 30 UNITS/NSS 30 UNITS/500 ML BAG IV PRN (15:44)
[2024-05-20] MEDS ORDERED: DIPHTHER/TETAN/PERTUS Vaccine (Tdap, Adol/Adult) 0.5mL IM ONE (15:44)
[2024-05-20] MEDS: IBUPROFEN 600 MG TAB PO PRN (16:46)
--- NOTE | 2024-05-20 17:44 | Anesthesia Procedure Note ---
Date of Service May 20, 2024 Anesthesia Post Epidural Note Vital Signs Vital Signs: Temp Pulse Resp BP Pulse Ox 36.6 C 74 16 140/81 98 05/20/24 15:55 05/20/24 17:27 05/20/24 16:55 05/20/24 17:27 05/20/24 15:19 Pain Intensity Lower Abdomen: Pain Intensity: 2 Notes Mental Status: alert / awake / arousable and participated in evaluation Nausea / Vomiting: adequately controlled Pain: adequately controlled Airway Patency, RR, SpO2: stable & adequate BP & HR: stable & adequate Hydration State: stable & adequate Neuraxial Anesthesia: was administered and sensory block is resolving Anesthetic Complications: no major complications apparent Epidural: Removed without complications and With tip intact
[2024-05-20] MEDS: BENZOCAINE 20% SPRY 85 APPLN/85 GM CAN EXT PRN (18:19)
[2024-05-20 20:20] VITALS: RESP 16
[2024-05-20] MEDS: DOCUSATE SODIUM 100 MG CAP PO SCH (20:53)
--- NOTE | 2024-05-21 06:48 | Medical Student Progress Note ---
Date of Service May 21, 2024 Assessment & Plan (1) Normal vaginal delivery: Plan: Patient is a 33 year old day 1 who is s/p normal spontaneous vaginal delivery with a 2nd degree perineal laceration. She is doing very well this morning. Her bleeding has decreased, her pain is well managed, she is able to ambulate, urinate, and pass gas. # Bleeding: Her bleeding has decreased and she is not passing any large clots. -Continue to monitor for bleeding. #Pain: Pain is well controlled on ibuprofen. -Continue ibuprofen 600mg q4h #Discharge: Patient wishes to be discharged today. It would be appropriate to discharge her after 24hrs. Admission and Anticipated Discharge Date Admission Date: May 20, 2024 Subjective Patient is day 1 who is s/p normal spontaneous vaginal delivery with a 2nd degree perineal laceration. Overall, she is doing very well and has no concerns. Her pain is at a 3/10 and well managed with ibuprofen. Her bleeding has decreased to less than a normal menstrual period and she is not passing any large clots. She is able to ambulate. She is able to independently and completely void urine. She has not had a bowel movement but has passed gas. She plans to breast feed her . Her mood is well. Physical Exam Constitutional: Well appearing, NAD Respiratory: Lungs CTAB without wheezes, rales, rhonchi Cardiovascular: RRR without murmurs, rubs, gallops. No tenderness or new swelling to her legs. Gastrointestinal (Abdomen): Abdomen is soft, nontender, nondistended. Uterus is firm, nontender, and fundus palpated 2cm above umbilicus. Psychiatric: Appropriate mood and affect Results & Data Vital Signs (Past 12 Hours) Vital Signs Temp Pulse Resp BP O2 Del Method 05/21/24 03:45 36.6 C 76 16 118/77 Room Air 05/20/24 23:20 36.9 C 83 16 104/69 Room Air 05/20/24 19:30 36.9 C 86 16 127/82 Room Air Supervising Attestation Patient seen with resident and agree with the above findings and plan. Stable for discharge.
[2024-05-21 07:17] LABS: Hematocrit (blood only) 32.1 % (37.0-47.0); Hemoglobin 10.4 g/dl (12.0-16.0)
[2024-05-21] MEDS: PRENATAL VITAMIN 1 TAB PO SCH (09:03)
[2024-05-21] MEDS: FERROUS SULFATE 325 MG TAB PO SCH (09:03)
[2024-05-21 10:12] VITALS: BP 127/86; PULSE 80; TEMP 97.7; O2SAT 97
[2024-05-21] MEDS ORDERED: bisacodyL 5 MG TABEC PO SCH (20:00)
[2024-05-22] MEDS ORDERED: LEVOTHYROXINE SODIUM 112 MCG TABLET PO SCH (06:30)
== END 2024-05-21 15:55 | disposition home or self-care (01) | DRG 807 ==
LOC: 4S1 07:43 → 4E2 18:18